=== PATIENT | male | born 1955 | race Caucasian/White ===

== ENCOUNTER 2016-09-05 20:45 | Inpatient (IN) | payer BC, MEDICARE ==
--- NOTE | ~2016-09-05 | CT71 ---
[facility] A Service of [facility] RADIOLOGY TEXT RESULTS PATIENT: TANVI BEAL LOCATION: [facility] 55- : 54 UNIT #: [id number] AGE: [address]: LYNDA RANDOLPH V SEX: M ORDER DR: [id number] [facility] [address] [facility] [address] [place], [place] [address] [id number] MR#: [id number] #: [id number] NAME: TANVI BEAL. : 1955 SEX: M STUDY DATE/TIME: 09/06/2016 7:52 UNIT: [facility] ROOM: [facility] STUDY DESCRIPTION: CT Head Wo Contrast Attending Physician: Lynda Randolph Ordering Physician: Andreina Daniel M.D. Primary Care Physician: Tyler Villegas M.D. MEDICAL IMAGING REPORT This report is preliminary unless electronic signature is present EXAM CT of the head 09/06/2016 HISTORY Bit by spider Friday, rash, fever, headache on 09/01/2016. Patient given anticoagulants. Patient states no longer has headaches. FINDINGS CT head performed skull base through vertex without intravenous contrast. No prior study for comparison. This CT examination was performed with one or more of the following radiation dose reduction techniques: automatic exposure control, adjustment of mA and/or kV according to patient size, and iterative reconstruction. Study degraded by streak/motion artifact. The brainstem shows no clearly acute abnormality. Assessment degraded by beam hardening artifact. Cerebellum and cerebral hemispheres show normal islas matter - white matter differentiation. No hemorrhage. No evidence of acute cortical ischemia. The midline structures are nondisplaced. Basal ganglia show no abnormality. The ventricles, cisterns and sulci within normal limits of size and contour. There is no intra- or extraaxial mass effect or abnormal intracranial fluid collection. Intraorbital soft tissues unremarkable. The visualized paranasal sinuses and mastoid air cells are clear. No fracture. There are some scattered cavernous carotid arterial calcifications. IMPRESSION 1. There is no clearly acute abnormality seen in the brain. If the patient has ongoing neurologic symptoms, consider follow up imaging, preferably with MRI if the patient is a candidate. 2. Motion degraded study. 3. Cavernous carotid arterial calcifications. [facility]. [facility] A Service of [facility] RADIOLOGY TEXT RESULTS PATIENT: TANVI BEAL LOCATION: [place] [id number] : 53 UNIT #: [id number] AGE: [address]: LYNDA RANDOLPH V SEX: M ORDER DR: Dictated by... Justin Chin M.D. THIS IS AN ELECTRONICALLY VERIFIED REPORT Justin Chin M.D. at 09/09/2016 7:52 AM EILEEN/edward TD: 09/06/2016 12:01 JOB #: [id number] MEDICAL IMAGING REPORT Page 1 of 1 COPY
--- NOTE | ~2016-09-05 | EKG ---
PATIENT: TANVI BEAL UNIT #: [id number] Ventricular Rate: 139 BPM Atrial Rate: 125 BPM QRS Duration: 84 ms Q-T Interval: 230 ms QTC Calculation(Bezet): 349 ms Calculated R Myton: 93 degrees Calculated T Myton: -124 degrees Diagnosis Line: Atrial fibrillation with rapid ventricular Diagnosis Line: response Diagnosis Line: Rightward axis Diagnosis Line: Low voltage QRS Diagnosis Line: ST and T wave abnormality, consider inferolateral Diagnosis Line: ischemia Diagnosis Line: Abnormal ECG Diagnosis Line: No previous ECGs available Diagnosis Line: Confirmed by NELIDA MCDANIEL MD ([id number]) on Diagnosis Line: 09/06/2016 9:04:59 AM INTERPRETING MD: JONAS ISLAS
--- NOTE | ~2016-09-05 | HP ---
Unit #: [id number] #: [id number] Patient: TANVI BEAL [id number] [address] [place], [place] [address] [id number] MR#: [id number] NAME: TANVI BEAL. ROOM: 557 Age: 61 Sex: M Admission Date: 09/05/2016 : 1955 Attending Physician: Andreina Daniel M.D. Primary Care Physician: Tyler Villegas M.D. HISTORY AND PHYSICAL CHIEF COMPLAINT Brown recluse spider bite with likely systemic response, AFib with RVR. HISTORY OF PRESENT ILLNESS This pleasant [id number] male with atrial fibrillation, CAD, hypertension, is admitted for malaise and rash. The patient was in his usual state of health until four days prior to admission. He was bitten by what appears to be a brown recluse spider which he actually brought into the ER with him. He states he was bitten on the right hand. That evening he developed nausea, generalized headache mainly in the frontal region, flu-like symptoms, malaise, fevers and decreased p.o. intake. He has also, however, developed pruritic rash over the hands bilaterally somewhat target appearing. [facility], was given a dose of antibiotics and referred to the ER. In our ER, his labs fairly unremarkable. He is noted, however, to be in AFib with RVR. Heart rate is 120s to 140s. He was bolused with IV fluids, given Zofran 125 mg, Solu-Medrol and 5 mg of IV metoprolol. He denies sore throat or diarrhea with the above. He notes some mild dysuria. Blood cultures are currently pending. PAST MEDICAL HISTORY 1. AFib, anticoagulated. 2. CAD status post one vessel CABG 2005. 3. EGD in the past revealing a gastric bezoar and moderate erosive gastritis. 4. Depression. 5. Chronic back pain status post 13 back surgeries now with an intrathecal implantable pain pump in place. 6. Hyperlipidemia. 7. Essential hypertension. 8. GERD. 9. Hypothyroidism. 10. C-spine fusion. 11. Right axillary mass of some sort excised. 12. Appendectomy. 13. Thirteen back surgeries. SOCIAL HISTORY The patient lives with his . He is a lifelong nonsmoker and does not drink alcohol. FAMILY HISTORY Hypertension, diabetes mellitus, leukemia, CAD. Unit #: [id number] #: [id number] Patient: TANVI BEAL ALLERGIES Morphine causes nausea and vomiting. HOME MEDICATIONS 1. Synthroid 0.75 mg daily. 2. Aspirin 81 mg daily. 3. Metoprolol 25 mg q.a.m. 4. Nexium 40 mg q.a.m. 5. Bumex 1 mg b.i.d. 6. Lotensin 20 mg daily. 7. Minocycline 50 mg in the morning and 100 mg in the evening for chronic ingrown hairs. 8. Xarelto 20 mg daily. 9. Lescol XL 80 mg q.h.s. 10. Topamax 200 mg q.h.s. 11. Trazodone 50 mg q.h.s. REVIEW OF SYSTEMS Negative for malaise, fevers, anorexia, rash, CAD, AFib, chronic back pain, hyperlipidemia, hypertension, hypothyroidism, GERD and above-mentioned surgeries. All other systems are reviewed and otherwise negative. PHYSICAL EXAMINATION GENERAL APPEARANCE: A pleasant, obese 61-year-old male currently in no acute distress. VITAL SIGNS: Temperature 99.3. Pulse 125. Respirations 19. Blood pressure 121/72. O2 saturation 100% on room air. HEENT: Eyes: PERRLA. Extraoculars are intact. Pharynx is benign. NECK: Supple without adenopathy or thyromegaly. CHEST: Clear. CARDIAC: Slightly tachy, S1, S2. Regular without murmur. ABDOMEN: Bowel sounds are present. There is a pain pump in the right upper quadrant but otherwise no masses. No hepatosplenomegaly or tenderness. EXTREMITIES: Chronic venostasis changes noted over the left leg. There are raised erythematous lesions over the hands bilaterally, right more so than left, particularly the right index finger and right second MTP region. Some of these lesions look to be more target like. There is also a similar lesion over the right upper back. NEUROLOGIC: The patient is awake, alert, oriented. Cranial nerves are intact. Equal strength throughout. DIAGNOSTIC STUDIES LABORATORY: Hematocrit 39.6, WBC count 12.9, normal platelet count. SMA-12: Glucose 138, albumin 3.3, lactic acid normal. CARDIOVASCULAR: EKG: AFib with RVR, rate 140. ASSESSMENT 1. Brown recluse spider bite with likely systemic response. However, the rash is somewhat generalized and not localized. The patient has a lesion over the right upper back and his hands bilaterally. Rule out erythema multiforme. 2. Chronic AFib, anticoagulated but with rapid ventricular response. 3. Essential hypertension. 4. CAD status post one vessel CABG. Unit #: [id number] #: [id number] Patient: TANVI BEAL 5. Hyperlipidemia. 6. Hypothyroidism. PLAN 1. Blood cultures are pending. Obtain urinalysis. 2. Obtain cardiac enzymes. 3. Prednisone. 4. The patient received one dose of Solu-Medrol in the ER. I will also write for a steroid cream over the hands. 5. IV fluids and supportive treatment. 6. Increase Lopressor. 7. Check thyroid function test. 8. If not improving, we will have Infectious Disease and Cardiology see. 9. Head CT given headache while anticoagulated. Dictated by Andreina Daniel M.D. AML/bd TD: 09/06/2016 06:11 JOB #: [id number] HISTORY AND PHYSICAL Page 1 of 1 X Andreina Daniel MD X HISTORY AND PHYSICAL
--- NOTE | ~2016-09-05 | DS ---
Unit #: [id number] #: [id number] Patient: TANVI BEAL [id number] [address] [address] [id number] I MR#: [id number] NAME: TANVI BEAL. ROOM: [facility] Age: 61 Sex: M Admission Date: 09/05/2016 : 1955 Discharge Date: 09/07/2016 Attending Physician: Andres Schmid M.D. Primary Care Physician: Tyler Villegas M.D. DISCHARGE SUMMARY PERTINENT AND HOSPITAL COURSE The patient is a 61-year-old man with atrial fibrillation and on chronic anticoagulation with Xarelto. He presents to the hospital following an insect bite to the right hand, which occurred about three days prior to admission. During that course of time, the patient started developing chills, nausea, and malaise. The bite area of redness increased over his right hand and subsequently developed increasing rash over both of his hands along with swelling with a reddish purple appearance. During his admission, the patient was started on IV doxycycline, IV glucocorticoids, and IV antihistamines. The swelling, redness, and rash over his hand subsequently improved. The patient was subsequently discharged on oral doxycycline 100 mg twice a day. DISCHARGE DIAGNOSES 1. Rash following insect bite and systemic symptoms of chills. 2. Atrial fibrillation, on chronic anticoagulation with Xarelto and rate control with metoprolol. DISCHARGE INSTRUCTIONS The patient to follow up with primary care physician. If symptoms worsen, to return to the emergency room. Dictated by... Dejan Lee M.D. FIDEL/tacos TD: 09/13/2016 16:50 JOB #: [id number] DISCHARGE SUMMARY Page 1 of 1 X Dejan Lee MD X DISCHARGE SUMMARY
[~2016-09-05 20:45] MED LIST: ASPIRIN81 M1 PO; ASPIRIN81 M2 PO; ASPIRINEC PO; BENAZEPRIL HCL40 MG PO; DEMEROL PO; DESYREL50 M1 PO; DISCONTINUED MED; FUROSEMIDE40 MG PO; KADIAN10 MG; KADIAN10 MG PO; KADIAN100 MG PO; KEFLEX; KEFLEX PO; LASIX20 MG PO; LESCOL; LESCOL PO; LESCOL XL80 MG PO; LOPRESSOR PO; LOTREL 10/20 MG1 CAP PO; MEN'S ONE DAILY1 TA1 PO; MEPERITAB50 MG PO; METHADONE PO; METOPROLOL TART25 MG PO; MORPHINE SULFA100 MG PO; MORPHINE SULFAT60 MG PO; MS CONTIN100 MG PO; NEXIUM PO; NEXIUM20 MG PO; ORAMORPH; SOLODYN PO; SOLODYN115 MG PO; TOPAMAX200 MG PO; TOPIRAMATE50 MG; TOPIRAMATE50 MG PO; TOPROL XL PO; TRAZODONE; TRAZODONE PO; ZOLOFT; ZOLOFT PO; ZOLOFT50 MG PO; [UNRECOGNIZED DRUG - OTHER]
[2016-09-05 22:17] LABS: BASOPHIL% 0.3 % (0-2.5); EOSINOPHIL# 0.2 X10e3 (0-0.7); EOSINOPHIL% 1.7 % (0.0-7.0); HEMATOCRIT 39.6 % (38.0-50.0); HEMOGLOBIN 12.9 gm/dL (13.0-16.0); LYMPHOCYTE# 0.7 X10e3 (1.0-3.5); LYMPHOCYTE% 5.2 % (17.0-45.0); MEAN CELL VOLUME 84.9 FL (83-96); MEAN CORPUSCULAR HEMOGLOBIN 27.7 PG (28-34); MEAN CORPUSCULAR HGB CONC 32.6 g/dL (30-36); MEAN PLATELET VOLUME 8.5 FL (6.5-11.5); MONOCYTE# 1.5 X10e3 (0-1.0); MONOCYTE% 11.9 % (3.0-12.0); NEUTROPHIL# 10.5 X10e3 (1.5-7.1); NEUTROPHIL% 80.9 % (40-75); PLATELET COUNT 198 X10e3 (140-420); RED BLOOD COUNT 4.67 X10e (3.90-5.60); RED CELL DISTRIBUTION WIDTH 15.1 % (11.0-15.5); WHITE BLOOD COUNT 12.9 X10e3 (4.0-10.5)
[2016-09-05 22:19] LABS: DIFF IND NO
[2016-09-05 22:46] LABS: ALBUMIN SERUM 3.3 g/dL (3.5-5.0); BILIRUBIN, DIRECT 0.3 mg/dL (0.0-0.2); BILIRUBIN,INDIRECT 0.9 mg/dL (0.0-0.9); BILIRUBIN,TOTAL 1.2 mg/dL (0.2-2.0); BUN/CREATININE RATIO 7.14; CALCIUM SERUM 8.4 mg/dL (8.4-10.2); CREATININE SERUM 1.4 mg/dL (0.6-1.4); GLOM FILT RATE Estimated 53.5 mL/min (>60); POTASSIUM 3.5 mmol/L (3.5-5.1); PROTEIN TOTAL SERUM 7.7 g/dL (6.0-8.3)
[2016-09-05] MEDS ORDERED: METOPROLOL TAR25 MG PO (23:13)
[2016-09-05] MEDS ORDERED: NEXIUM PO (23:13)
[2016-09-05] MEDS ORDERED: ASPIRIN81 MG PO (23:13)
[2016-09-05] MEDS ORDERED: MINOCYCLINE HCL50 MG PO (23:14)
[2016-09-05] MEDS ORDERED: XARELTO20 MG PO (23:14)
[2016-09-05] MEDS ORDERED: BUMEX1 MG PO (23:14)
[2016-09-05] MEDS ORDERED: LOTENSIN20 MG PO (23:14)
[2016-09-05] MEDS ORDERED: TOPAMAX200 MG PO (23:16)
[2016-09-05] MEDS ORDERED: DESYREL50 MG PO (23:16)
[2016-09-05] MEDS ORDERED: LESCOL XL80 MG PO (23:16)
[2016-09-05] MEDS ORDERED: MINOCIN50 M1 PO (23:17)
[2016-09-06 03:43] LABS: %MB 1.7 % (0.0-4.0); MB 2.5 ng/ml
[2016-09-06 06:14] LABS: HEMATOCRIT 37.2 % (38.0-50.0); HEMOGLOBIN 11.9 gm/dL (13.0-16.0); LYMPHOCYTE# 0.6 X10e3 (1.0-3.5); LYMPHOCYTE% 7.5 % (17.0-45.0); MEAN CELL VOLUME 86.3 FL (83-96); MEAN CORPUSCULAR HEMOGLOBIN 27.6 PG (28-34); MEAN PLATELET VOLUME 8.6 FL (6.5-11.5); MONOCYTE# 0.1 X10e3 (0-1.0); MONOCYTE% 1.5 % (3.0-12.0); NEUTROPHIL# 7.6 X10e3 (1.5-7.1); PLATELET COUNT 186 X10e3 (140-420); RED BLOOD COUNT 4.31 X10e (3.90-5.60); RED CELL DISTRIBUTION WIDTH 15.2 % (11.0-15.5); WHITE BLOOD COUNT 8.3 X10e3 (4.0-10.5)
[2016-09-06 06:28] LABS: DIFF IND NO
[2016-09-06 06:30] LABS: INR 1.2; PARTIAL THROMBOPLASTIN TIME 32.9 SECONDS (23.5-31.3); PROTHROMBIN TIME (PATIENT) 12.7 SECONDS (10.0-11.7)
[2016-09-06 06:48] LABS: THYROID STIMULATING HORMONE 1.4 uIU/ml (0.34-5.60)
[2016-09-06 06:55] LABS: FREE THYROXIN (T4) 0.98 ng/dL (0.58-1.64)
[2016-09-06 07:20] LABS: BILIRUBIN,TOTAL 0.6 mg/dL (0.2-2.0); BUN/CREATININE RATIO 8.57; CALCIUM SERUM 8.6 mg/dL (8.4-10.2); CREATININE SERUM 1.4 mg/dL (0.6-1.4); GLOM FILT RATE Estimated 53.5 mL/min (>60); POTASSIUM 3.7 mmol/L (3.5-5.1); PROTEIN TOTAL SERUM 7.1 g/dL (6.0-8.3)
[2016-09-06 10:01] LABS: %MB 2.2 % (0.0-4.0); MB 3.7 ng/ml
[2016-09-06] MEDS ORDERED: SYNTHROID75 MCG PO (18:22)
[2016-09-06] MEDS ORDERED: DOXYCYCLINE HY100 M3 PO (18:29)
== END 2016-09-07 08:30 | disposition home or self-care (01) | DRG 918 ==
LOC: CED 20:45 → CEDOF 23:26 → CED 23:26 → CEDOF 23:50 → C5B 09-06 00:20 → CEDOF 09-06 00:20 → C5B 09-06 08:30
PROVIDERS: Emergency Medicine; Internal Medicine
DX: T63.331A Toxic effect of venom of brown recluse spider, accidental (unintentional), initial encounter (principal); I48.2 Chronic atrial fibrillation; I10 Essential (primary) hypertension; L25.8 Unspecified contact dermatitis due to other agents; Y92.9 Unspecified place or not applicable; R53.81 Other malaise; Z79.01 Long term (current) use of anticoagulants; I25.10 Atherosclerotic heart disease of native coronary artery without angina pectoris; Z95.1 Presence of aortocoronary bypass graft; E78.5 Hyperlipidemia, unspecified; K21.9 Gastro-esophageal reflux disease without esophagitis; E03.9 Hypothyroidism, unspecified; Z88.5 Allergy status to narcotic agent; Z83.3 Family history of diabetes mellitus; Z80.6 Family history of leukemia; Z82.49 Family history of ischemic heart disease and other diseases of the circulatory system
CPT/HCPCS: 36415; 70450; 80048; 80053; 80076; 82550; 82553; 83605; 84439; 84443; 84484; 85025; 85610; 85730; 87040; 93005; 96361; 96374; 96375; 99285; J1200; J2405; J2920; J2930; J3490